=== PATIENT | male | born 1960 ===

== ENCOUNTER 2018-05-18 23:40 | Emergency (ER) | payer BC ==
[~2018-05-18] VITALS: Ht 177.8 cm; Wt 79.4 kg
[2018-05-18 23:41] VITALS: BP 118/80
[2018-05-18] MEDS ORDERED: Morphine Sulfate 4mg/ml Inj (IV USE ONLY) IVP ONE (23:45)
[2018-05-18] MEDS ORDERED: Isovue-370 150ml vial INJ PRN (23:45)
--- NOTE | 2018-05-18 23:46 | Emergency Room Report ---
History of Present Illness General Chief Complaint: Chest Pain Source: Patient Present Illness HPI This is a 58-year-old male who was recently admitted to [facility] in [place] for appendectomy. This was 5-6 days ago. He had proper scopic appendectomy. According to patient, he had cardiac arrest on the table. He said he doesn't remember what happened. He was just discharged yesterday. He presents with chief point of chest pain. He was watching TV when he had get epigastric pain. Pain was severe. It went from a 5 out of 10 to a 9 out of 10. He felt short of breath. Was diaphoretic. No exertional component. No radiation to his arm. No radiation to his neck. Radiate to the back. No nausea no vomiting. No fever or chills. Family called 911. He received aspirin and nitroglycerin. Didn't help a little bit. Denies any other complaint. Never had heart problem before. Allergies: Coded Allergies: No Known Allergies (Unverified , 05/18/18) Patient History Past Medical History: see triage record, old chart reviewed Past Surgical History: appy Pertinent Family History: other Social History: Denies: smoking Immunizations: other Reviewed Nursing Documentation: PMH: Agreed; PSxH: Agreed Nursing Documentation-PMH Hx Gastrointestinal Problems: Yes - APPENDECTOMY,May Review of Systems Eye: Denies: eye pain, blurred vision ENT: Denies: ear pain, nose congestion, throat swelling Respiratory: Denies: cough, shortness of breath Cardiovascular: Reports: chest pain; Denies: palpitations Gastrointestinal: Denies: abdominal pain, diarrhea, nausea, vomiting Musculoskeletal: Denies: back pain, joint pain Skin: Denies: rash Neurological: Denies: headache, numbness Endocrine: Denies: increased thirst, increased urine Hematologic/Lymphatic: Denies: easy bruising All Other Systems: negative except mentioned in HPI Physical Exam Vital Signs Date Time Temp Pulse Resp B/P (MAP) Pulse Ox O2 Delivery O2 Flow Rate FiO2 05/18/18 23:29 98.7 97 20 130/80 100 Room Air 98.8 vitals normal Sp02 EP Interpretation: reviewed, normal General Appearance: well appearing, no apparent distress, alert Head: normocephalic, atraumatic Eyes: bilateral eye PERRL, bilateral eye EOMI ENT: hearing grossly normal, normal pharynx Neck: full range of motion, supple, no meningismus Respiratory: chest non-tender, lungs clear, normal breath sounds Cardiovascular #1: regular rate, rhythm, no murmur Gastrointestinal: normal bowel sounds, no mass, no organomegaly, no bruit, non- distended, tenderness - surgical site clean. Mild tenderness diffusely. Musculoskeletal: back normal, gait/station normal, normal range of motion Psychiatric: mood/affect normal Skin: warm/dry Medical Decision Making Diagnostic Impression: Primary Impression: Chest pain Qualified Codes: R07.9 - Chest pain, unspecified Additional Impression: Pneumonia Qualified Codes: J18.1 - Lobar pneumonia, unspecified organism ER Course Patient presents with atypical chest pain. He had recent laprascopic appendectomy. According to his after extubated him he had rest or distress and was told that fluid fill up in his lungs. He was reintubated. Echocardiogram was done. CT scan was done. Everything was normal and he was subsequently extubated and discharged home. He's been complaining of coughing usually at night with low-grade fever. He has no PE, ACS, dissection to name a few. Lab Results Impression labs unremarkable EKG Diagnostic Results Rate: normal Rhythm: NSR ST Segments: no acute changes Rhythm Strip Diag. Results Rhythm Strip Time: 23:46 EP Interpretation: yes Rate: 81 Rhythm: NSR, no PVC's, no ectopy Chest X-Ray Diagnostic Results Chest X-Ray Diagnostic Results : Chest X-Ray Ordered: Yes # of Views/Limited/Complete: 1 View Indication: Chest Pain EP Interpretation: Yes Interpretation: no consolidation, no effusion, no pneumothorax, no acute cardiopulmonary disease Impression: No acute disease Electronically Signed by: Adam Figueroa MD CT/MRI/US Diagnostic Results CT/MRI/US Diagnostic Results : Imaging Test Ordered: CT chest Impression right lower lobe infiltrate per radiologist. Last Vital Signs Date Time Temp Pulse Resp B/P (MAP) Pulse Ox O2 Delivery O2 Flow Rate FiO2 05/18/18 23:41 98.8 74 20 118/80 100 Room Air 98.8 Status: improved Disposition: HOME, SELF-CARE Condition: Stable Scripts Azithromycin* (ZITHROMAX*) 250 Mg Tablet 250 MG ORAL DAILY, #6 TAB 0 Refills Take two tables once daily for 1 day, then one tablet once daily for 4 days. Prov: ADAM FIGUEROA M.D. 05/19/18 Patient Instructions: Nonspecific Chest Pain Additional Instructions: Follow-up with your Dr. in 2 to 3 days for recheck. Return if symptom worsen. ADAM FIGUEROA M.D. May 18, 2018 23:46
[2018-05-18] MEDS ORDERED: FAMOTIDINE20 MG ORAL (23:59)
[2018-05-18] MEDS ORDERED: OXYCODONE-ACET1 EAC3 ORAL (23:59)
[2018-05-18] MEDS ORDERED: DOCUSATE SODIU100 MG ORAL (23:59)
[2018-05-19 00:20] LABS: ANION GAP 6 mmol/L (5-15); BLOOD UREA NITROGEN 18 mg/dL (7-18); CARBON DIOXIDE 28 MMOL/L (21-32); CHLORIDE 102 MMOL/L (98-107); CREATININE 1.1 MG/DL (0.55-1.30); POTASSIUM 5.8 MMOL/L (3.5-5.1); SODIUM 136 MMOL/L (136-145)
[2018-05-19 00:20] LABS: APPEARANCE,URINE CLEAR; BILIRUBIN, URINE NEGATIVE (NEGATIVE); COLOR,URINE PALE YELLOW; GLUCOSE, URINE (UA) NEGATIVE (NEGATIVE); KETONES,URINE NEGATIVE (NEGATIVE); LEUKOCYTE ESTERASE ,URINE 1+ (NEGATIVE); NITRITE,URINE NEGATIVE (NEGATIVE); PH,URINE 7 (4.5-8.0); PROTEIN,URINE NEGATIVE (NEGATIVE); UROBILINOGEN,URINE NORMAL MG/DL (0.0-1.0)
[2018-05-19 00:24] LABS: BASOPHILS % (AUTO) 1.7 % (0.0-2.0); EOSINOPHILS % (AUTO) 3.6 % (0.0-3.0); HEMATOCRIT 37.9 % (42.0-52.0); HEMOGLOBIN 12.7 G/DL (14.2-18.0); LYMPHOCYTES % (AUTO) 38.4 % (20.0-45.0); MEAN CORPUSCULAR VOLUME 82 FL (80-99); MONOCYTES % (AUTO) 11.5 % (1.0-10.0); NEUTROPHILS % (AUTO) 44.9 % (45.0-75.0); PLATELET COUNT 231 K/UL (150-450); RED BLOOD COUNT 4.59 M/UL (4.70-6.10); RED CELL DISTRIBUTION WIDTH 11.3 % (11.6-14.8); WHITE BLOOD COUNT 5.9 K/UL (4.8-10.8)
[2018-05-19 00:35] LABS: ALANINE AMINOTRANSFERASE 46 U/L (12-78); ALBUMIN 3.2 G/DL (3.4-5.0); ALBUMIN/GLOBULIN RATIO 0.7 (1.0-2.7); ALKALINE PHOSPHATASE 69 U/L (46-116); ASPARTATE AMINO TRANSFERASE 75 U/L (15-37); BILIRUBIN,TOTAL 0.5 MG/DL (0.2-1.0); CKMB 1.7 NG/ML (0.0-3.6); CREATINE KINASE 766 U/L (26-308)
[2018-05-19 00:39] LABS: INR 1.1 (0.9-1.1)
--- NOTE | 2018-05-19 01:16 | Diagnostic Imaging Report ---
EXAM: CT Chest With Intravenous Contrast. CLINICAL HISTORY: Chest pain TECHNIQUE: Axial computed tomography images of the chest with intravenous contrast during the arterial phase of enhancement. CTDI is 23 mGy and DLP is 666 mGy-cm. One or more of the following dose reduction techniques were used: automated exposure control, adjustment of the mA and/or kV according to patient size, use of iterative reconstruction technique. COMPARISON: No relevant prior studies available. FINDINGS: Pulmonary arteries: No pulmonary embolism. Mild dilatation of the main pulmonary artery, which measures up to 3.4 cm in diameter. Aorta: No acute findings. No thoracic aortic aneurysm. Lungs: Patchy ground-glass opacities within the right upper, middle and lower lobes, and to a lesser extent in the left lower lobe. This may be aspiration related or due to a multifocal infectious process. There is pleural-based consolidation in the posterior right lung base, suggestive of developing pneumonia Pleural spaces: No significant effusion. No pneumothorax. Heart: Unremarkable. No cardiomegaly. No significant pericardial effusion. No evidence of RV dysfunction. Bones: Unremarkable. No acute fracture. Lymph nodes: Unremarkable. No enlarged lymph nodes. IMPRESSION: No evidence of pulmonary embolus. Mildly dilated main pulmonary artery suggestive of pulmonary arterial hypertension. Developing right lower lobe pneumonia. Multifocal airspace opacities in both lungs, right more than left, may be aspiration related or due to infection.
[2018-05-19] MEDS ORDERED: cefTRIAXone 1 GM in NS 55 ML IVPB ONE (01:30)
[2018-05-19 01:46] VITALS: BP 140/83
--- NOTE | 2018-05-19 02:43 | Diagnostic Imaging Report ---
EXAM: XR Chest, 1 View. CLINICAL HISTORY: Chest pain TECHNIQUE: Frontal view of the chest. COMPARISON: No relevant prior studies available. FINDINGS: Lungs: Lung volumes are within normal limits. No evidence of diffuse interstitial abnormality. Pleural spaces: No pleural effusions. No pneumothorax. Heart: No cardiomegaly. Mediastinum: No mediastinal widening or shift.. Bones: Unremarkable. No acute fracture. IMPRESSION: No radiographic evidence of active cardiopulmonary abnormality. Please see subsequent CT chest report for details of airspace disease.
[2018-05-19] MEDS ORDERED: ZITHROMAX250 MG ORAL (02:49)
[2018-05-19 03:06] VITALS: BP 128/80
[2018-05-19 03:07] VITALS: BP 128/80
--- NOTE | 2018-05-20 18:41 | Cardiology Report ---
APPROVED REPORT EKG Measurement Heart [id number] Normal sinus rhythm Normal ECG
== END 2018-05-19 03:08 | disposition home or self-care (01) ==
LOC: EDBD 23:40 → EMR 23:55
DX: R07.9 Chest pain, unspecified (principal); J18.1 Lobar pneumonia, unspecified organism; Z90.49 Acquired absence of other specified parts of digestive tract
CPT/HCPCS: 36415; 71045; 71275; 80053; 81003; 82550; 82553; 84484; 85025; 85610; 85730; 93005; 96361; 96365; 96375; 99285; J0696; J2270; J2405; Q9967